=== PATIENT | female | born 1995 | race Caucasian/White ===

== ENCOUNTER 2016-09-10 16:13 | Emergency (ER) | payer SELFPAY ==
[2016-09-10 21:14] LABS: ALBUMIN 3.5 g/dL (3.4-5.0); ALKALINE PHOSPHATASE 83 U/L (46-116); ALT (SGPT) 14 U/L (10-68); BILIRUBIN - TOTAL 0.22 mg/dL (0.2-1.3); CALC OSMOLALITY 282 mosm/kg (275-300); CALCIUM 8.6 mg/dL (8.5-10.1); CARBON DIOXIDE 25.5 mmol/L (21.0-32.0); CHLORIDE - SERUM 104 mmol/L (98-107); CREATININE - SERUM 0.9 mg/dL (0.6-1.3); GLUCOSE 96 mg/dL (74-106); POTASSIUM - SERUM 3.7 mmol/L (3.5-5.1); PROTEIN - SERUM 6.8 g/dL (6.4-8.2); SODIUM 142 mmol/L (136-145); UREA NITROGEN 12 mg/dL (7-18); eGFR NON AFRICAN AMERICAN 85 mL/min (90-120)
[2016-09-10 21:26] LABS: HCG SERUM NEGATIVE (NEGATIVE)
== END 2016-09-10 23:00 | disposition home or self-care (01) ==
LOC: D.ER 16:13
PROVIDERS: Physician Assistant
DX: S22.41XA Multiple fractures of ribs, right side, initial encounter for closed fracture (principal); X58.XXXA Exposure to other specified factors, initial encounter; Y93.89 Activity, other specified; Y92.89 Other specified places as the place of occurrence of the external cause; F17.200 Nicotine dependence, unspecified, uncomplicated

== ENCOUNTER 2017-08-10 09:46 | Inpatient (IN) | payer MEDICAID ==
[~2017-08-10] VITALS: Ht 172.7 cm; Wt 70.5 kg
--- NOTE | ~2017-08-10 | OP ---
PATIENT NAME: DIANE LIND MEDICAL RECORD: [id number] :95 LOCATION:[facility] ADMISSION DATE:08/10/17 SURGEON: ANGE CHOI MD DATE OF OPERATION: 08/10/2017 PREOPERATIVE DIAGNOSIS: Intertrochanteric hip fracture. POSTOPERATIVE DIAGNOSIS: Intertrochanteric hip fracture. PROCEDURE: Cephalomedullary fixation -- gamma nail of the right hip. SURGEON: Ange Choi MD ANESTHESIA: General. INTRAOPERATIVE COMPLICATIONS: None. SUMMARY OF PATHOLOGIC FINDINGS: Essentially none. INDICATIONS: This 21-year-old female presented to the Emergency Department with hip pain without any history of trauma. Radiographs revealed the patient had a fracture at the base of her femoral neck. Further, the patient had been to seek medical care several times over the week before complaining of hip pain. Previous radiographs were negative, again the patient today gives no history of trauma, but she is hyperlax. OPERATIVE SUMMARY IN DETAIL: After obtaining the appropriate preoperative orthopedic surgery consent as well as anesthetic consultation, evaluation, and clearance, the patient was brought to the operating room and placed on the operating table in supine position. After general laryngeal mask was administered, the patient was placed on the fracture table. Right leg was placed in the fracture traction boot, left leg was placed in the well leg chavez. She was secured firmly to the operating table using the seatbelt and in strap system. Under direct fluoroscopic visualization, a small amount of traction was placed across this as it was not greatly displaced. Hip was prepped and draped in routine sterile fashion. Incision was made over the tip of the greater trochanter. An awl was used to introduce the ball-tipped guidewire for reaming. The proximal reaming was done. It was felt at this point that this patient had a very tight canal. Flexible reamers were then used to assure the 11-mm gamma nail could be placed down. Reaming was taken up to 12, gamma nail was then put in place to the appropriate depth. The guide pin was then placed in the center-center position for the compression screw. Reaming was done for the compression screw followed by placing a derotational pin at a 45 degree angle to the guide pin so that while the compression screw went into this very young female's bone, the neck would not spin in it, it did not. The compression screw was placed to the appropriate depth. Compression was placed across the compression screw and the derotational screw was put into place to allow for compression, but not rotation. Having completed this, distal interlocking screw was put into place, all under fluoroscopic guidance. Wounds were then copiously irrigated. Final radiographs were taken and submitted for radiologist's review. Wounds were copiously irrigated and closed in usual fashion. Sterile dressings were applied. The patient was awakened, taken to recovery room in stable condition. All final needle and sponge counts were correct. OPERATIVE REPORT [id number] DIANE LIND TRANSINT:[id number] Voice Confirmation ID: [id number] DOCUMENT ID: [id number] JIMBO EDUARDO, ANGE SAENZ at 0827 CC: [id number] DICTATION DATE: 08/13/171824 POULTRY BUYER: 08/13/172136 DIS IN 08/13/17 [id number] [place] [address]
[2017-08-10 12:21] LABS: INR 0.79 (0.85-1.17); PROTIME 10.6 SECONDS (11.6-15.0)
[2017-08-10 12:28] LABS: ALBUMIN 3.7 g/dL (3.4-5.0); ALKALINE PHOSPHATASE 73 U/L (46-116); ALT (SGPT) 21 U/L (10-68); BILIRUBIN - TOTAL 0.18 mg/dL (0.2-1.3); CALC OSMOLALITY 271 mosm/kg (275-300); CARBON DIOXIDE 27.1 mmol/L (21.0-32.0); CHLORIDE - SERUM 102 mmol/L (98-107); CREATININE - SERUM 0.6 mg/dL (0.6-1.3); GLUCOSE 89 mg/dL (74-106); PROTEIN - SERUM 7.1 g/dL (6.4-8.2); SODIUM 137 mmol/L (136-145); UREA NITROGEN 11 mg/dL (7-18); eGFR NON AFRICAN AMERICAN > 90 mL/min (90-120)
[2017-08-10 12:41] LABS: BASOPHILS 0.1 % (0-2); EOSINOPHILS 1.5 % (0-7); HEMATOCRIT 42.3 % (36.0-48.0); HEMOGLOBIN 14.1 g/dL (12-16); IMMATURE GRANULOCYTES 1.8 % (0-5); LYMPHOCYTES 17.8 % (15-50); MCH 30.7 pg (26.0-34.0); MCHC 33.3 g/dL (31.0-37.0); MCV 92.2 fL (80.0-100.0); MEAN PLATELET VOLUME 10.6 fL (7.4-10.4); MONOCYTES 9.2 % (2-11); NEUTROPHILS 69.6 % (40-80); PLATELET COUNT 300 10x3/uL (130-400); RBC 4.59 10x6/uL (4.00-5.40); RDW 14.6 % (11.5-14.5); WBC 17.1 10x3/uL (4.8-10.8)
[2017-08-10 13:15] LABS: HCG URINE NEGATIVE (NEGATIVE)
[2017-08-10 15:46] VITALS: BP 114/71
[2017-08-10 16:44] VITALS: BP 114/71; BMI 23.6
[2017-08-10] MEDS ORDERED: REMERON30 MG PO (19:28)
[2017-08-10] MEDS ORDERED: ADDERALL 15 MG15 MG PO (19:28)
[2017-08-11 06:05] LABS: HEMOGLOBIN 12.1 g/dL (12-16); MCH 29.8 pg (26.0-34.0); MCHC 32.7 g/dL (31.0-37.0); MCV 91.1 fL (80.0-100.0); MEAN PLATELET VOLUME 10.2 fL (7.4-10.4); RBC 4.06 10x6/uL (4.00-5.40); RDW 14.2 % (11.5-14.5); WBC 17.2 10x3/uL (4.8-10.8)
[2017-08-11 07:28] VITALS: BP 110/64
[2017-08-11 08:15] VITALS: Ht 172.7 cm; Wt 70.5 kg
[2017-08-11 15:45] VITALS: BP 98/50
[2017-08-12 06:08] LABS: HEMATOCRIT 35.1 % (36.0-48.0); HEMOGLOBIN 11.3 g/dL (12-16); MCH 29.7 pg (26.0-34.0); MCHC 32.2 g/dL (31.0-37.0); MCV 92.1 fL (80.0-100.0); MEAN PLATELET VOLUME 10.6 fL (7.4-10.4); RBC 3.81 10x6/uL (4.00-5.40); RDW 14.6 % (11.5-14.5)
[2017-08-12 06:13] VITALS: BP 110/67
[2017-08-12 06:17] LABS: WBC 11.7 10x3/uL (4.8-10.8)
[2017-08-12 08:51] VITALS: BP 110/64
[2017-08-12 13:24] VITALS: BP 136/71
[2017-08-12 15:45] VITALS: BP 102/54
[2017-08-12 20:00] VITALS: BP 105/53
[2017-08-13] VITALS: BP 117/67
[2017-08-13 04:00] VITALS: BP 107/67
[2017-08-13] MEDS ORDERED: ELIQUIS2.5 MG PO (08:29)
[2017-08-13] MEDS ORDERED: PERCOCET 10/3251 TA1 PO (08:29)
[2017-08-13] MEDS ORDERED: ZOFRAN ODT4 MG/UDTAB PO (08:44)
[2017-08-13 08:45] VITALS: BP 131/80
== END 2017-08-13 13:21 | disposition home health service (06) | DRG 482 ==
LOC: D.ER 09:46 → D.MS 14:45
PROVIDERS: Orthopaedic Surgery; Physician Assistant
PROC: 0QH634Z Insertion of Internal Fixation Device into Right Upper Femur, Percutaneous Approach (ICD-10-PCS; principal; 2017-08-10 13:30)
DX: M84.459A Pathological fracture, hip, unspecified, initial encounter for fracture (principal); F17.200 Nicotine dependence, unspecified, uncomplicated

== ENCOUNTER → 2019-05-13 12:39 | Outpatient (CLI) | payer MEDICAID ==
[2017-08-11 08:15] VITALS: BMI 23.6
[~2019-05-13 12:39] MED LIST: ADDERALL 15 MG15 MG PO; ELIQUIS2.5 MG PO; PERCOCET 10/3251 TA1 PO; REMERON30 MG PO; ZOFRAN ODT4 MG/UDTAB PO
== END | disposition home or self-care (01) ==
LOC: D.MRI 05-11 16:00
PROVIDERS: ATTEND Clinical Nurse Specialist Family Health
DX: M25.531 Pain in right wrist (principal)